=== PATIENT | female | born 1980 | race Caucasian/White ===

== ENCOUNTER 2016-11-24 07:21 | Day surgery (SDC) | payer OTHER ==
[2016-11-24] VITALS (7 sets, daily range): BP systolic 125–140; BP diastolic 70–79; PULSE 52–78; RESP 16–25; Ht 160 cm; Wt 110.0 kg
[~2016-11-24] VITALS: Ht 160 cm; Wt 110.0 kg
[~2016-11-24 07:21] MED LIST: ATROPINE 1 MG/10 ML SYRINGE IV PRN; CEFAZOLIN 2 GM/50 ML (PMX) 50 ML IVPB SCH; DIPHENHYDRAMINE 50 MG INJ IV PRN; EPHEDrine SULFATE 50 MG/5 ML SYG IV PRN; FENTAnyl 50 MCG/ML VIAL IV PRN; IBUP-1542 PO; LABETALOL HCL 20MG INJ IV PRN; LORA1TAB PO; METO-335 PO; MIDAZOLAM 1 MG/ML 2 ML INJ IV PRN; ONDANSETRON 4 MG INJ IV PRN; SERT50TA6 PO; SOD CHLORIDE 0.9% 1,000 ML IV SCH; hydrALAzine 20 MG INJ IV PRN
[2016-11-24] MEDS ORDERED: METO-407 PO (07:53)
[2016-11-24] MEDS ORDERED: NOL20 PO (07:54)
[2016-11-24 10:00] LABS: BASOPHIL # 0.1 10^3/ul (0.0-0.1); BASOPHILS % 0.6 % (0.0-2.0); EOSINOPHILS # 0.2 10^3/ul (0.0-0.5); EOSINOPHILS % 2.6 % (0.0-7.0); HEMATOCRIT 42.7 % (37.0-47.0); LYMPHOCYTES # 2.3 10^3/ul (0.8-2.9); LYMPHOCYTES % 26.1 % (15.0-51.0); MEAN CORPUSCULAR HEMOGLOBIN 33.8 pg (29.0-33.0); MEAN CORPUSCULAR HGB CONC 35.1 g/dl (32.0-37.0); MEAN CORPUSCULAR VOLUME 96.2 fl (82.0-101.0); MEAN PLATELET VOLUME 10.8 fl (7.4-10.4); MONOCYTE # 0.6 10^3/ul (0.3-0.9); MONOCYTES % 6.5 % (0.0-11.0); NEUTROPHIL # 5.6 10^3/ul (1.6-7.5); PLATELET COUNT 196 10^3/UL (140-415); RED BLOOD COUNT 4.44 10^6/ul (4.20-5.40); RED CELL DISTRIBUTION WIDTH 12.9 % (11.5-14.5); WHITE BLOOD COUNT 8.8 10^3/ul (4.8-10.8)
[2016-11-24 10:15] LABS: INR 0.95; PROTIME 12.7 Sec (12.2-14.2)
[2016-11-24 10:17] LABS: ALBUMIN 3.5 g/dl (3.3-4.9); ALBUMIN/GLOBULIN RATIO 1.29; BILIRUBIN,INDIRECT 0.3 mg/dl (0-1.1); BILIRUBIN,TOTAL 0.3 mg/dl (0.2-1.3); TOTAL PROTEIN 6.2 g/dl (6.1-8.1)
[2016-11-24 10:22] LABS: CREATININE 0.94 mg/dl (0.44-1.00); POTASSIUM 4.1 mmol/L (3.5-5.1)
[2016-11-24 10:48] LABS: PARTIAL THROMBOPLASTIN TIME 22.5 Sec (25.0-35.0)
[2016-11-24] MEDS ORDERED: PROPOFOL 20 ML ONE ×2 (11:14→12:17)
[2016-11-24] MEDS ORDERED: SUGAMMADEX SODIUM 200 MG/2 ML VIAL IV ONE (11:14)
[2016-11-24] MEDS ORDERED: LIDOCAINE 100 MG SYRINGE ONE (11:14)
[2016-11-24] MEDS ORDERED: ONDANSETRON 4 MG INJ ONE (11:15)
[2016-11-24] MEDS ORDERED: DEXAMETHASONE 4 MG/ML 1 ML INJ ONE (11:15)
[2016-11-24] MEDS ORDERED: ROCURONIUM 50 MG INJ ONE ×2 (11:15→12:17)
[2016-11-24] MEDS ORDERED: CEFAZOLIN 1 GM INJ ONE (11:28)
[2016-11-24] MEDS ORDERED: NEOSTIGMINE 3 MG/3 ML SYRINGE ONE (12:17)
[2016-11-24] MEDS ORDERED: GLYCOPYRROLATE 0.4 MG INJ ONE (12:17)
[2016-11-24] MEDS ORDERED: FENTAnyl 50 MCG/ML VIAL ONE (12:17)
[2016-11-24] MEDS ORDERED: MIDAZOLAM 1 MG/ML 2 ML INJ ONE (12:17)
[2016-11-24] MEDS ORDERED: LIDOCAINE 2% (SDV) 5 ML INJ ONE (12:17)
[2016-11-24] MEDS ORDERED: BUPIVACAINE 0.5%/EPI (SDV) 30 ML INJ ONE (13:02)
[2016-11-24] MEDS ORDERED: NEOMYC/POLYMYX/BACIT 30 GM OINT ONE (13:02)
--- NOTE | 2016-11-24 13:29 | OPR ---
DATE OF OPERATION: 11/24/2016 PREOPERATIVE DIAGNOSIS: History of right breast cancer. The patient presents with nipple ulceration, rule out recurrent cancer. POSTOPERATIVE DIAGNOSIS: History of right breast cancer. The patient presents with nipple ulceration, rule out recurrent cancer. OPERATION PERFORMED: Right nipple biopsy. ANESTHESIA: Local with IV sedation. ANESTHESIOLOGIST: Tera Marcos MD. SURGEON: Brian Blancas MD HABITAT CONSERVATION PLANNER: Rosalva Au MD INDICATIONS FOR PROCEDURE: Patient is an unfortunate 36-year-old female, previously treated for invasive cancer of her right breast. She presented with nipple change suspicious for recurrent disease. She was counseled as to the need for nipple biopsy. She consented and was scheduled for surgery. OPERATIVE PROCEDURE: The patient was brought to the operating theater, placed under IV sedation. The right breast was prepped and draped in the usual sterile fashion. The nipple-areolar complex area was infiltrated with 0.5 percent Marcaine local anesthetic. Using a 10 blade scalpel, an elliptical incision was made and a sample of the nipple and the subcutaneous tissue was removed and sent for permanent pathologic analysis. The bleeding was controlled with cautery. Antibiotic and a sterile dressing was then applied. The patient tolerated procedure well. ESTIMATED BLOOD LOSS: 2 mL. COMPLICATIONS: There were no complications. POSTOPERATIVE CONDITION: The patient was transported in stable condition to recovery room. Dictated By: Brian Blancas MD /connie/luna /Document#: [id number]
== END 2016-11-24 14:30 | disposition home or self-care (01) ==
LOC: SDS 07:21
PROVIDERS: ATTEND Surgery Surgical Oncology
DX: C50.011 Malignant neoplasm of nipple and areola, right female breast (principal); Z17.1 Estrogen receptor negative status [ER-]; I10 Essential (primary) hypertension; E66.01 Morbid (severe) obesity due to excess calories; Z68.41 Body mass index [BMI] 40.0-44.9, adult
CPT/HCPCS: 19101; 80053; 84703; 85025; 85610; 85730; 88305; 88313; J2001; J2250; J3010; Z7512; Z7610; J0690; J1100; J2405; J2710

== ENCOUNTER 2017-01-15 06:52 | Inpatient (IN) | payer OTHER ==
[2017-01-15] VITALS (14 sets, daily range): BP systolic 120–162; BP diastolic 61–90; PULSE 50–62; RESP 13–22; Ht 162.6 cm; Wt 110.0 kg
[~2017-01-15] VITALS: Ht 162.6 cm; Wt 110.0 kg
[~2017-01-15 06:52] MED LIST changes: -ATROPINE 1 MG/10 ML SYRINGE IV PRN; +CEFAZOLIN 1 GM/50 ML (PMX) 50 ML IVPB ONE; -CEFAZOLIN 2 GM/50 ML (PMX) 50 ML IVPB SCH; -DIPHENHYDRAMINE 50 MG INJ IV PRN; -EPHEDrine SULFATE 50 MG/5 ML SYG IV PRN; -FENTAnyl 50 MCG/ML VIAL IV PRN; -IBUP-1542 PO; -LABETALOL HCL 20MG INJ IV PRN; -LORA1TAB PO; -METO-335 PO; +METO-407 PO; -MIDAZOLAM 1 MG/ML 2 ML INJ IV PRN; +NOL20 PO; -ONDANSETRON 4 MG INJ IV PRN; -SERT50TA6 PO; -SOD CHLORIDE 0.9% 1,000 ML IV SCH; -hydrALAzine 20 MG INJ IV PRN
[2017-01-15] MEDS ORDERED: BUPIVACAINE 0.5% ON-Q-PUMP 0 ML ONE (06:57)
[2017-01-15 07:56] LABS: BASOPHIL # 0.1 10^3/ul (0.0-0.1); BASOPHILS % 0.4 % (0.0-2.0); EOSINOPHILS # 0.4 10^3/ul (0.0-0.5); EOSINOPHILS % 3.3 % (0.0-7.0); HEMATOCRIT 43.3 % (37.0-47.0); HEMOGLOBIN 14.8 g/dl (12.0-16.0); LYMPHOCYTES # 2.2 10^3/ul (0.8-2.9); LYMPHOCYTES % 18.9 % (15.0-51.0); MEAN CORPUSCULAR HEMOGLOBIN 32.9 pg (29.0-33.0); MEAN CORPUSCULAR HGB CONC 34.2 g/dl (32.0-37.0); MEAN CORPUSCULAR VOLUME 96.2 fl (82.0-101.0); MEAN PLATELET VOLUME 10.2 fl (7.4-10.4); MONOCYTE # 0.7 10^3/ul (0.3-0.9); MONOCYTES % 6.3 % (0.0-11.0); NEUTROPHIL # 8.3 10^3/ul (1.6-7.5); NEUTROPHILS % 70.8 % (39.0-77.0); PLATELET COUNT 227 10^3/UL (140-415); RED CELL DISTRIBUTION WIDTH 12.3 % (11.5-14.5); WHITE BLOOD COUNT 11.7 10^3/ul (4.8-10.8)
[2017-01-15] MEDS ORDERED: MIDAZOLAM 1 MG/ML 2 ML INJ ONE (08:28)
[2017-01-15 08:35] LABS: ALBUMIN 3.7 g/dl (3.3-4.9); ALBUMIN/GLOBULIN RATIO 1.32; BILIRUBIN,INDIRECT 0.1 mg/dl (0-1.1); BILIRUBIN,TOTAL 0.1 mg/dl (0.2-1.3); TOTAL PROTEIN 6.5 g/dl (6.1-8.1)
[2017-01-15 08:40] LABS: POTASSIUM 3.9 mmol/L (3.5-5.1)
[2017-01-15 08:41] LABS: INR 0.87; PROTIME 11.8 Sec (12.2-14.2); PT RATIO 0.9
[2017-01-15 08:53] LABS: CREATININE 1.01 mg/dl (0.44-1.00)
[2017-01-15 09:15] LABS: PARTIAL THROMBOPLASTIN TIME 24.7 Sec (25.0-35.0)
[2017-01-15] MEDS ORDERED: PROPOFOL 40 ML ONE (09:50)
[2017-01-15] MEDS ORDERED: LIDOCAINE 2% (SDV) 5 ML INJ ONE (09:50)
[2017-01-15] MEDS ORDERED: CEFAZOLIN 1 GM INJ ONE (09:50)
[2017-01-15] MEDS ORDERED: ONDANSETRON 4 MG INJ ONE (09:53)
[2017-01-15] MEDS ORDERED: FENTAnyl 50 MCG/ML VIAL ONE (10:10)
--- NOTE | 2017-01-15 10:12 | SIPON ---
Date/Time of Note Date/Time of Note DATE: 01/15/17 TIME: 10:11 Operative Report Preoperative Diagnosis Recurrent cancer right breast with involvement of the nipple areolar complex Postoperative Diagnosis Same Operation/Procedure Performed Right modified radical mastectomy Surgeon see signature line employment legal assistant Dr Mckay Anesthesia: general Estimated blood loss: 50 - 100 ml's Transfusion Required none Specimen Right breast and axillary contents Grafts/Implants none Complications none ANDRIY MATRIN MD Jan 15, 2017 10:12
[2017-01-15] MEDS: FENTAnyl 50 MCG/ML VIAL IV PRN ×3 (10:25→10:42)
[2017-01-15] MEDS: SOD CHLORIDE 0.9% 1,000 ML IV SCH ×2 (10:26→19:20)
[2017-01-15] MEDS ORDERED: DIPHENHYDRAMINE 50 MG INJ IV PRN (10:30)
[2017-01-15] MEDS ORDERED: ONDANSETRON 4 MG INJ IV PRN ×2 (10:30)
[2017-01-15] MEDS ORDERED: METOCLOPRAMIDE 10 MG INJ IV PRN (10:30)
[2017-01-15] MEDS ORDERED: ACETAMINOPHEN 1000MG/100ML IV 100 ML IVPB PRN (10:30)
[2017-01-15] MEDS ORDERED: LABETALOL HCL 20MG INJ IV PRN (10:30)
[2017-01-15] MEDS ORDERED: hydrALAzine 20 MG INJ IV PRN (10:30)
--- NOTE | 2017-01-15 11:08 | OPR ---
DATE OF OPERATION: 01/15/2017 PREOPERATIVE DIAGNOSIS: Recurrent breast cancer, right breast with involvement of the nipple areola r complex. POSTOPERATIVE DIAGNOSIS: Recurrent breast cancer, right breast with involvement of the nipple areol ar complex. PROCEDURE: Right modified radical mastectomy. ANESTHESIA: General. ANESTHESIOLOGIST: Kennedy Spear MD. SURGEON: Brian Blancas MD. LOBBY PORTER: Chapo Jolley MD. INDICATIONS FOR PROCEDURE: The patient is known to me. She is an unfortunate 36-year-old female wh o I had treated in 2014 for an invasive cancer of her right breast. She had done well, but recently developed evidence of changes of her nipple. This was some distance away from the previous maligna ncy. 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 She consented and was scheduled for surgery. DESCRIPTION OF PROCEDURE: The patient was brought to the operating theater, placed under general en dotracheal tube anesthesia. The right breast and axillary region was prepped and draped in usual st erile fashion. The breast was very pendulous. A long elliptical incision widely around the affecte d area of the skin and areolar complex extending into the axilla was carried out with 15 blade scalp el. Subcutaneous tissue was dissected with cautery. The skin edges were then elevated with Allis A dair clamps and skin flaps were created sequentially using cautery, first superiorly to the clavicle , then medially to the sternal border, inferiorly to the inframammary fold and laterally until the l atissimus dorsi muscle was identified throughout its course. Mastectomy then took place from medial to lateral using cautery. At the border of the pectoralis major muscle, the pectoralis minor muscl e was identified. Clavipectoral fascia was incised and the additional axillary tail and level 1 axi llary tissue was then resected. However, there was significant scar tissue noted due to the previou s axillary procedure. The specimen was then elevated. The remaining connective tissue attachments to the latissimus dorsi muscle were transected with cautery. Specimen was removed, oriented and sen t for permanent pathologic analysis. The wound was irrigated. Minimal bleeding was controlled with cautery. There was a significant amount of redundant skin, both medially and laterally. Both thes e regions were resected using scalpel and cautery. The medial portion was sent as additional medial skin for pathology and the lateral portion was also sent. Two #10 flat Ga-Dunlap drains were t hen brought through the right mid axillary line, one was laid over the pectoralis major muscle, the other was cut to size and laid within the axilla. Both drains were secured in place with 2-0 nylon sutures in standard fashion and the skin was then reapproximated with skin chris. The patient barbara erated the procedure well. The estimated blood loss was approximately 100 mL. There were no compli cations. The patient was transported in stable condition to the recovery room. Dictated By: BRIAN BLANCAS MD TL/RUPAL Conf#: [id number] DID#: [id number] CC: CHAPO JOLLEY MD; CASA KEE MD;*End*
[2017-01-15] MEDS: D5W-0.45 NACL + KCL 20 MEQ 1,000 ML IV SCH ×2 (12:30→18:02)
[2017-01-15] MEDS: morphine 2 MG INJ IV PRN ×6 (12:46→23:10)
[2017-01-16] MEDS: morphine 2 MG INJ IV PRN ×3 (01:07→11:00)
[2017-01-16] MEDS: D5W-0.45 NACL + KCL 20 MEQ 1,000 ML IV SCH ×2 (01:08→10:55)
[2017-01-16 02:00] VITALS: BP 122/61; RESP 18
--- NOTE | 2017-01-16 14:23 | PN ---
DATE: 01/16/2017 Status post right modified radical mastectomy postoperative. SUBJECTIVE: No complaint. OBJECTIVE: GENERAL: Awake, alert, oriented x3. VITAL SIGNS: Temperature 98.4, heart rate 65, respiration 18, blood pressure 120/61, saturation 98% room air. LABORATORY DATA: Two Ga-Dunlap drains draining serosanguineous fluid, each 40 mL fluid from po stop time until now, today, which is 2 p.m. in the afternoon. The patient can move right upper extr emity full range. Dressing is intact. HEART: Regular. LUNGS: Clear. ABDOMEN: Soft. ASSESSMENT AND PLAN: A 36-year-old female with recurrent right breast cancer in the form of Paget d robinson, underwent right modified radical mastectomy yesterday. Postoperative she is doing fine. Vi jerica signs stable. Dressing is intact. Ga-Dunlap is draining serosanguineous fluid 40 mL over t he last 24 hours, each of them. PLAN: The patient can be discharged home. Instruction was given how to take care of the Ga-Pr att and how to measure the drainage amount and to record them on a piece of paper every night. Pain medication prescription was written, [place]. Patient, apparently, takes at home tamoxifen and metop rolol. The patient was advised to continue her home medications as have been instructed by her [facility]. Patient to call Dr. Blancas' office and make an appointment for followup next week. Dictated By: PAPI JOLLEY MD PS/NTS Conf#: [id number] DID#: [id number]
--- NOTE | 2017-01-17 14:56 | HP ---
DATE OF ADMISSION: 01/15/2017 CHIEF COMPLAINT: A 33-year-old female with recurrent right breast cancer. HISTORY OF PRESENT ILLNESS: The patient previously was diagnosed with a right breast cancer in 2003 . She had been treated successfully, recently developed evidence of skin and nipple changes. A ski n biopsy was done and confirmed recurrent disease consistent with Paget's disease. She was counsele d as to need for right mastectomy. She consented and was scheduled for surgery. PAST MEDICAL HISTORY: Significant for hypertension, previous pneumonia and history of anxiety and d epression. PAST SURGICAL HISTORY: As above. MEDICATIONS 1. Metoprolol. 2. Lorazepam. Doses not provided. ALLERGIES: THE PATIENT HAS NO KNOWN DRUG ALLERGIES. SOCIAL HISTORY: The patient is otherwise healthy, lives with her family. She does smoke cigarettes but denies alcohol use. FAMILY HISTORY: Noncontributory. PHYSICAL EXAMINATION: Focused exam is performed. The right breast is examined. There is ulceratio n of the nipple region consistent with her known diagnosis. ASSESSMENT AND PLAN: Recurrent right breast cancer. PLAN: We will proceed with right mastectomy. Dictated By: ANDRIY YI/RUPAL Conf#: [id number] DID#: [id number]
== END 2017-01-16 17:57 | disposition home or self-care (01) | DRG 583 ==
LOC: SDS 06:52 → REC 10:13 → SDS 10:13 → PP2 11:59
PROVIDERS: ADMIT Surgery Surgical Oncology; ATTEND Surgery Surgical Oncology
PROC: 0HTT0ZZ Resection of Right Breast, Open Approach (ICD-10-PCS; principal; 2017-01-15 08:00)
DX: C50.011 Malignant neoplasm of nipple and areola, right female breast (principal); I10 Essential (primary) hypertension; F41.9 Anxiety disorder, unspecified; F32.9 Major depressive disorder, single episode, unspecified
CPT/HCPCS: 80053; 85025; 85610; 85730; 88305; 88307; J0690; J2250; J2270; J2405; J3010; J3480; J7030